=== PATIENT | female | born 1950 | race Caucasian/White ===

== ENCOUNTER → 2017-04-06 16:22 | Outpatient (CLI) | payer MEDICARE, BC | END | disposition home or self-care (01) | LOC: D.MAMMO 08:00 | DX: Z12.31 Encounter for screening mammogram for malignant neoplasm of breast (principal) ==

== ENCOUNTER 2019-04-10 08:00 | Outpatient (CLI) | payer MEDICARE | END 2019-04-10 09:00 | disposition home or self-care (01) | LOC: D.MAMMO 08:00 | PROVIDERS: ATTEND Family Medicine | DX: Z12.31 Encounter for screening mammogram for malignant neoplasm of breast (principal) ==

== ENCOUNTER → 2020-04-08 12:44 | Outpatient (CLI) | payer MEDICARE | END | disposition home or self-care (01) | LOC: D.MRI 12:44 | PROVIDERS: ATTEND Orthopaedic Surgery | DX: M54.12 Radiculopathy, cervical region (principal) ==

== ENCOUNTER 2020-04-15 09:00 | Outpatient (CLI) | payer MEDICARE | END 2020-04-15 10:00 | disposition home or self-care (01) | LOC: D.MAMMO 09:00 | PROVIDERS: ATTEND Family Medicine | DX: Z12.31 Encounter for screening mammogram for malignant neoplasm of breast (principal) ==

== ENCOUNTER → 2020-08-07 13:07 | Outpatient (CLI) | payer MEDICARE | END | disposition home or self-care (01) | LOC: D.MRI 13:07 | PROVIDERS: ATTEND Orthopaedic Surgery | DX: M25.512 Pain in left shoulder (principal) ==

== ENCOUNTER → 2020-09-10 20:35 | Outpatient (CLI) | payer MEDICARE | END | disposition home or self-care (01) | LOC: D.LABREF 20:35 | PROVIDERS: ATTEND Orthopaedic Surgery | DX: M17.12 Unilateral primary osteoarthritis, left knee (principal) ==

== ENCOUNTER 2021-04-20 15:00 | Outpatient (CLI) | payer MEDICARE, MEDICAID, OTHER ==
[2020-11-02 15:32] VITALS: BMI 30.2
[~2021-04-20 15:00] MED LIST: ELIQUIS2.5 MG PO; LIPITOR20 MG PO; LISINOPRIL-HCT1 EAC7 PO; NAPROSYN500 MG PO; OXYCODONE HCL5 M1 PO; TYLENOL ARTHRI650 MG PO; TYLENOL W/CODEI1 TAB PO; VISTARIL50 MG PO
== END 2021-04-21 23:59 | disposition home or self-care (01) ==
LOC: D.MAMMO 15:00
PROVIDERS: ATTEND Family Medicine
DX: Z12.31 Encounter for screening mammogram for malignant neoplasm of breast (principal)